=== PATIENT | male | born 1945 | race Caucasian/White ===

== ENCOUNTER 2017-08-19 08:39 | Day surgery (SDC) | payer MEDICARE, OTHER ==
[~2017-08-19 08:39] MED LIST: Acetaminophen/HYDROcodone 325-5 MG Tab PO PRN; Bupivacaine 25%/EPINEPHrine/PF 30 ML ONE; Lactated Ringers 1,000 ML IV SCH; ceFAZolin 2 GM in Premix Bag 1 BAG IV ONE
[2017-08-19] MEDS ORDERED: fentaNYL 100 MCG/2 ML SDV IVPUSH PRN (08:43)
[2017-08-19] MEDS ORDERED: Ondansetron 4 MG/2 ML SDV ONE (08:44)
[2017-08-19] MEDS ORDERED: fentaNYL 100 MCG/2 ML SDV ONE (08:44)
[2017-08-19] MEDS ORDERED: Midazolam 1 MG/ML 2 ML SDV ONE (08:44)
[2017-08-19] MEDS ORDERED: Propofol 200 MG/20 ML SDV ONE (08:44)
[2017-08-19] MEDS ORDERED: Lidocaine 2% 5 ML SDV ONE (08:44)
[2017-08-19] MEDS ORDERED: ceFAZolin 1 GM Vial ONE (08:45)
[2017-08-19] MEDS ORDERED: Sodium Chloride 0.9% 20 ML ONE (08:45)
[2017-08-19] MEDS ORDERED: Bupivacaine 0.25%/EPINEPHrine 1:200,000 10 ML SDV INJECT ONE (09:00)
--- NOTE | 2017-08-19 09:42 | PCM.PREANE ---
Preanesthetic Assessment - Anesthesia/Transfusion/Family Hx Anesthesia History: Prior Anesthesia Without Reaction Other Type of Anesthesia Reaction Comment: "my mother is allergic to novacaine" Family History of Anesthesia Reaction: No Transfusion History: No Prior Transfusion(s) Intubation History: Unknown - Review of Systems General: No Symptoms Pulmonary: No Symptoms Cardiovascular: No Symptoms Gastrointestinal: No Symptoms Neurological: No Symptoms Other: Reports: None - Physical Assessment NPO Status Date: 08/18/17 NPO Status Time: 22:00 O2 Sat by Pulse Oximetry: 94 Respiratory Rate: 16 Vital Signs: Last Vital Signs Temp 36.8 C 08/19/17 09:11 Pulse 63 08/19/17 09:11 Resp 16 08/19/17 09:11 BP 125/63 08/19/17 09:11 Pulse Ox 94 L 08/19/17 09:11 Height: 1.73 m Weight: 90.718 kg ASA Class: 3 Mental Status: Alert & Oriented x3 Airway Class: Mallampati = 2 Dentition: Reports: Normal Dentition Thyro-Mental Finger Breadths: 2 Mouth Opening Finger Breadths: 3 ROM/Head Extension: Limited/Partial Lungs: Clear to Auscultation, Normal Respiratory Effort Cardiovascular: Regular Rate, Regular Rhythm - Allergies Allergies/Adverse Reactions: Allergies Allergy/AdvReac Type Severity Reaction Status Date / Time Sulfa (Sulfonamide Allergy Swelling Verified 08/17/17 10:36 Antibiotics) - Blood Blood Available: No - Anesthesia Plan Beta Rivas: Metoprolol Med Last Dose Date: 08/18/17 Med Last Dose Time: 21:30 - Acknowledgements Anesthesia Type Planned: General Anesthesia Pt an Appropriate Candidate for the Planned Anesthesia: Yes Alternatives and Risks of Anesthesia Discussed w Pt/Guardian: Yes Pt/Guardian Understands and Agrees with Anesthesia Plan: Yes PreAnesthesia Questionnaire HEENT History: Reports: Other (See Below) Other HEENT History: wears glasses, has radha hearing aids Cardiovascular History: Reports: Afib, High Cholesterol, Hypertension Respiratory History: Reports: Asthma, Sleep Apnea Other Respiratory History: uses CPAP Gastrointestinal History: Reports: GERD, Hepatitis, Other (See Below) Other Gastrointestinal History: hx hepatitis in grade school Genitourinary History: Reports: BPH, Renal Calculus Musculoskeletal History: Reports: Osteoarthritis Endocrine/Metabolic History: Reports: Obesity/BMI 30+, Other (See Below) Other Endocrine/Metabolic History: "borderline diabetic" Oncologic (Cancer) History: Reports: Basal Cell Carcinoma Dermatologic History: Reports: Psoriasis - Past Surgical History Head Surgeries/Procedures: Reports: None Other HEENT Surgeries/Procedures: "lump removed from tongue" GI Surgical History: Reports: Hernia, Inguinal (bilateral) Neurological Surgical History: Reports: C-Spine (ACDF) Other Neurological Surgeries/Procedures: hx neck surgery Dermatological Surgical History: Reports: Skin Biopsy - SUBSTANCE USE Smoking Status *Q: Former Smoker (quit ') Days Per Week of Alcohol Use: 7 Number of Drinks Per Day: 2 Total Drinks Per Week: 14 Recreational Drug Use History: No - HOME MEDS Home Medications: Home Meds Apixaban [Eliquis] 5 mg PO BID 08/17/17 [History] Cetirizine HCl/Pseudoephedrine [Cetirizine-Pse ER 5-120 mg Tab] 1 tab PO ASDIRECTED 08/17/17 [History] Fluticasone/Salmeterol [Advair 250-50 Diskus] 1 inhalation INH BID 08/17/17 [ History] Glucosamine/D3/Boswellia Caitlin [Osteo Bi-Flex Caplet] 1 tab PO BID 08/17/17 [ History] Glucosamine/D3/Boswellia Caitlin [Osteo Bi-Flex Tablet] 1 tab PO BID 08/17/17 [ History] Lisinopril 10 mg PO DAILY 08/17/17 [History] Metoprolol Succinate [Toprol XL] 25 mg PO DAILY 08/17/17 [History] [place]-3S/DHA/Epa/Fish Oil [Fish Oil Dr 1,000 mg Softgel] 1 tab PO DAILY [History] Pantoprazole Sodium 40 g PO DAILY 08/17/17 [History] Simvastatin [Zocor] 20 mg PO DAILY 08/17/17 [History] Tamsulosin HCl 0.4 mg PO BEDTIME 08/17/17 [History] - CURRENT (IN HOUSE) MEDS Current Meds: Current Medications Hydrocodone Bitart/Acetaminophen ([place] 325-5 Mg) 1 tab PO Q4H PRN PRN Reason: Pain Fentanyl (Sublimaze) 50 mcg IVPUSH Q5M PRN PRN Reason: Pain (severe 7-10) Stop: 08/20/17 08:43 Lactated Ringer's (Ringers, Lactated) 1,000 mls @ 125 mls/hr IV ASDIRECTED ALYSSA Last Admin: 08/19/17 09:13 Dose: 125 mls/hr Discontinued Medications Bupivacaine HCl/Epinephrine Bitart (Marcaine 0.25%/Epinephrine 1:200,000) 30 ml INJECT ONETIME ONE Stop: 08/19/17 09:01 Cefazolin Sodium (Ancef) Confirm Administered Dose 2 gm .ROUTE .STK-MED ONE Stop: 08/19/17 08:46 Fentanyl (Sublimaze) Confirm Administered Dose 200 mcg .ROUTE .STK-MED ONE Stop: 08/19/17 08:45 Cefazolin Sodium/Dextrose 2 gm (/ Premix) 50 mls @ 100 mls/hr IV ONETIME ONE Stop: 08/18/17 17:46 Bupivacaine HCl/Epinephrine Bitart (Sensorc Mpf 0.25%-Epi 1:191038) Confirm Administered Dose 30 mls @ as directed .ROUTE .STK-MED ONE Stop: 08/19/17 07:23 Sodium Chloride (Normal Saline) Confirm Administered Dose 20 mls @ as directed .ROUTE .STK-MED ONE Stop: 08/19/17 08:46 Lidocaine (Xylocaine-Mpf 2%) Confirm Administered Dose 5 ml .ROUTE .STK-MED ONE Stop: 08/19/17 08:45 Midazolam HCl (Versed 1 Mg/Ml) Confirm Administered Dose 2 mg .ROUTE .STK-MED ONE Stop: 08/19/17 08:45 Ondansetron HCl (Zofran) Confirm Administered Dose 4 mg .ROUTE .STK-MED ONE Stop: 08/19/17 08:45 Propofol (Diprivan 20 Ml) Confirm Administered Dose 200 mg .ROUTE .STK-MED ONE Stop: 08/19/17 08:45
[2017-08-19] MEDS ORDERED: ePHEDrine 50 MG/ML SDV ONE (10:39)
[2017-08-19] MEDS ORDERED: Vasopressin 20 Units/1 ML MDV ONE (10:43)
--- NOTE | 2017-08-20 15:33 | PCM.OPNOTE ---
- General Post-Op/Procedure Note Date of Surgery/Procedure: 08/19/17 Operative Procedure(s): excision of right neck lentigo maligna 3.5cm2 with primary complex closure. excision of left denominational lesion 1cm with primary simple repair Pre Op Diagnosis: right neck lentigo maligna and left denominational lesion Post-Op Diagnosis: Same Anesthesia Technique: General LMA, Local Primary Surgeon: Lucille Ge Credit Authorizer: Elizabeth Crawford Role of Credit Authorizer: retraction, closure Pathology: permanent for both lesions marking at 12 Complications: None Condition: Good
--- NOTE | 2017-08-20 21:00 | OR ---
SURGEON: REINIER FINNEGAN MD DATE OF PROCEDURE: 08/19/2017 PREOPERATIVE DIAGNOSES: Lentigo maligna of the right neck, 3 cm2 and left buddhist lesion 0.5 cm. POSTOPERATIVE DIAGNOSES: Lentigo maligna of the right neck, 3 cm2 and left buddhist lesion 0.5 cm. PROCEDURE: 1. Excision of right neck lentigo maligna 3.5 cm with primary complex closure of the same length. 2. Excision of left buddhist lesion 1 cm with primary simple repair. TOWER HOIST OPERATOR: GUADALUPE Mcclain. INDICATIONS: Mr. Rosales is a 72-year-old gentleman seen today in evaluation for a lentigo maligna of the right neck. Excision is recommended with 0.5 cm margins. In addition, he has a left buddhist lesion that has been there and growing and causing him discomfort. Risks and benefits of excision were discussed with him and he was in agreement to proceed. Risks were including, but not limited to, bleeding, infection, damage to underlying or overlying structures, possible need for future interventions, possible scarring. PROCEDURE IN DETAIL: After informed consent was obtained and placed on the chart, the patient was brought to the operating theater and laid in supine position. After adequate local MAC anesthesia and local general LMA anesthesia was obtained, the area was prepped and draped and a time-out was completed to confirm side and site. Attention was paid to marking of the right neck lentigo maligna of the pigmented area +0.5 cm for margin. This was excised in a circular fashion and sent for pathology with marking stitch at 12 o'clock. Once adequately excised, attention was then paid to meticulous hemostasis and primary complex closure using deep 3- 0 Monocryl stitches for the fascial area to take tension off the skin and deep dermal 3-0 Monocryl stitches as well as a 4-0 Prolene stitch in a horizontal mattress fashion. Once adequately closed, the wound was dressed with an ABD and tape. Attention was then paid to the left buddhist lesion and excision was undertaken with a 1 cm ellipse and the lesion was sent for pathology. It was closed using deep Monocryl stitch in a running subcuticular. Once adequately closed, the wound was dressed with gauze dressing and tape. The patient tolerated this well. All counts and needles were correct at the end of the case. FOLLOWUP INSTRUCTIONS: The patient will see us in clinic in one week or sooner if any problems, questions, or concerns. We will contact him with pathology if it comes back any sooner. Wound care instructions were given and he was given a prescription for pain control as needed. JOHNATHON / DG /[id number]
== END 2017-08-19 13:10 | disposition home or self-care (01) ==
LOC: MW.SDS 08:39
PROVIDERS: ATTEND Plastic Surgery
DX: C43.4 Malignant melanoma of scalp and neck (principal); I48.91 Unspecified atrial fibrillation; E78.00 Pure hypercholesterolemia, unspecified; I10 Essential (primary) hypertension; J45.909 Unspecified asthma, uncomplicated; G47.30 Sleep apnea, unspecified; K21.9 Gastro-esophageal reflux disease without esophagitis; N40.0 Benign prostatic hyperplasia without lower urinary tract symptoms; E66.9 Obesity, unspecified; Z98.1 Arthrodesis status; Z88.0 Allergy status to penicillin; Z87.442 Personal history of urinary calculi; Z68.30 Body mass index [BMI] 30.0-30.9, adult; Z87.891 Personal history of nicotine dependence; Z79.899 Other long term (current) drug therapy
CPT/HCPCS: 11624; 11641; 13132; J0690; J2250; J2405; J3010; J7120; 00300; 88305; J2704

== ENCOUNTER 2017-11-25 08:20 | Day surgery (SDC) | payer MEDICARE, OTHER ==
[~2017-11-25 08:20] MED LIST changes: -Acetaminophen/HYDROcodone 325-5 MG Tab PO PRN; +Bupivacaine 0.25%/EPINEPHrine 1:200,000 10 ML SDV INJECT ONE
[2017-11-25] MEDS ORDERED: Midazolam 1 MG/ML 2 ML SDV ONE (10:07)
[2017-11-25] MEDS ORDERED: Ondansetron 4 MG/2 ML SDV ONE (10:07)
[2017-11-25] MEDS ORDERED: Lidocaine 2% 5 ML SDV ONE (10:07)
[2017-11-25] MEDS ORDERED: fentaNYL 100 MCG/2 ML SDV ONE ×2 (10:07→11:50)
[2017-11-25] MEDS ORDERED: Propofol 200 MG/20 ML SDV ONE (10:07)
--- NOTE | 2017-11-25 10:11 | PCM.PREANE ---
Preanesthetic Assessment - Procedure Proposed Procedure: Excision of melanoma lesion; facial/restoration area - Anesthesia/Transfusion/Family Hx Anesthesia History: Prior Anesthesia Without Reaction Other Type of Anesthesia Reaction Comment: "my mother is allergic to novacaine" Transfusion History: No Prior Transfusion(s) Intubation History: Unknown Additional History: Radiology sentinel node prep - Review of Systems General: No Symptoms Pulmonary: Other (sleep apnea - uses CPAP; former smoker) Cardiovascular: Other (A fib - treated) Gastrointestinal: Other (GERD) Neurological: Other (back /neck problem hx) - Physical Assessment NPO Status Date: 11/24/17 NPO Status Time: 23:00 O2 Sat by Pulse Oximetry: 95 Respiratory Rate: 16 Vital Signs: Last Vital Signs Temp 97.7 F 11/25/17 08:30 Pulse 77 11/25/17 08:30 Resp 16 11/25/17 08:30 BP 140/70 11/25/17 08:30 Pulse Ox 95 11/25/17 08:30 Height: 5 ft 8 in Weight: 200 lb ASA Class: 3 Mental Status: Alert & Oriented x3 Airway Class: Mallampati = 2 Dentition: Reports: Missing Tooth/Teeth (retrognathic) Thyro-Mental Finger Breadths: 3 Mouth Opening Finger Breadths: 3 ROM/Head Extension: Limited/Partial Lungs: Clear to Auscultation, Normal Respiratory Effort Cardiovascular: Regular Rate, Regular Rhythm, No Murmurs - Allergies Allergies/Adverse Reactions: Allergies Allergy/AdvReac Type Severity Reaction Status Date / Time Sulfa (Sulfonamide Allergy Swelling Verified 11/20/17 07:29 Antibiotics) - Blood Blood Available: No Product(s) Available: None - Acknowledgements Anesthesia Type Planned: General Anesthesia, MAC (vs general; discuss with surgeon) Pt an Appropriate Candidate for the Planned Anesthesia: Yes Alternatives and Risks of Anesthesia Discussed w Pt/Guardian: Yes Pt/Guardian Understands and Agrees with Anesthesia Plan: Yes PreAnesthesia Questionnaire HEENT History: Reports: Other (See Below) Other HEENT History: wears glasses, has radha hearing aids Cardiovascular History: Reports: Afib, High Cholesterol, Hypertension Respiratory History: Reports: Asthma, Sleep Apnea Other Respiratory History: uses CPAP Gastrointestinal History: Reports: GERD, Hepatitis, Other (See Below) Other Gastrointestinal History: hx hepatitis in grade school Genitourinary History: Reports: BPH, Renal Calculus Musculoskeletal History: Reports: Osteoarthritis Neurological History: Reports: None Psychiatric History: Reports: None Endocrine/Metabolic History: Reports: None Hematologic History: Reports: None Immunologic History: Reports: None Oncologic (Cancer) History: Reports: Basal Cell Carcinoma, Malignant Melanoma Dermatologic History: Reports: None - Past Surgical History Head Surgeries/Procedures: Reports: None HEENT Surgical History: Reports: Cataract Surgery Other HEENT Surgeries/Procedures: "lump removed from tongue" GI Surgical History: Reports: Hernia, Inguinal Neurological Surgical History: Reports: C-Spine Other Neurological Surgeries/Procedures: hx back surgery Dermatological Surgical History: Reports: Skin Biopsy - SUBSTANCE USE Smoking Status *Q: Former Smoker Days Per Week of Alcohol Use: 7 Number of Drinks Per Day: 2 Total Drinks Per Week: 14 Recreational Drug Use History: No - HOME MEDS Home Medications: Home Meds Apixaban [Eliquis] 5 mg PO BID 08/17/17 [History] Cetirizine HCl/Pseudoephedrine [Cetirizine-Pse ER 5-120 mg Tab] 1 tab PO BID [History] Fluticasone/Salmeterol [Advair 250-50 Diskus] 1 inhalation INH BID 08/17/17 [ History] Glucosamine/D3/Boswellia Caitlin [Osteo Bi-Flex Tablet] 1 tab PO BID 08/17/17 [ History] Lisinopril 10 mg PO DAILY 08/17/17 [History] Metoprolol Succinate [Toprol XL] 25 mg PO DAILY 08/17/17 [History] [place]-3S/DHA/Epa/Fish Oil [Fish Oil Dr 1,000 mg Softgel] 1 tab PO DAILY [History] Simvastatin [Zocor] 20 mg PO DAILY 08/17/17 [History] Tamsulosin HCl 0.4 mg PO BEDTIME 08/17/17 [History] Amiodarone [Cordarone] 200 mg PO BEDTIME 11/20/17 [History] Hydrochlorothiazide 25 mg PO DAILY 11/20/17 [History] Lutein/Minerals/Vit A,C & E [Ocuvite] 1 tab PO DAILY 11/20/17 [History] Pantoprazole Sodium [Protonix] 40 mg PO DAILY 11/20/17 [History] Prednisone [IJD: predniSONE] 20 mg PO ASDIRECTED 11/20/17 [History] Triamcinolone Acetonide [Nasacort AQ [place]] 1 spray NASBOTH ASDIRECTED 11/20/17 [History] - CURRENT (IN HOUSE) MEDS Current Meds: Current Medications Lactated Ringer's (Ringers, Lactated) 1,000 mls @ 125 mls/hr IV ASDIRECTED ALYSSA Last Admin: 11/25/17 09:57 Dose: 125 mls/hr Discontinued Medications Bupivacaine HCl/Epinephrine Bitart (Marcaine 0.25%/Epinephrine 1:200,000) 10 ml INJECT ONETIME ONE Stop: 11/25/17 08:01 Cefazolin Sodium/Dextrose 2 gm (/ Premix) 50 mls @ 100 mls/hr IV ONETIME ONE Stop: 11/25/17 08:29 Bupivacaine HCl/Epinephrine Bitart (Sensorc Mpf 0.25%-Epi 1:[id number]) Confirm Administered Dose 30 mls @ as directed .ROUTE .STK-MED ONE Stop: 11/25/17 07:29
[2017-11-25] MEDS ORDERED: Methylene Blue 50 MG/10 ML Ampule ONE (10:25)
[2017-11-25] MEDS ORDERED: Glycopyrrolate 0.2 MG/ML SDV ONE (11:31)
[2017-11-25] MEDS ORDERED: ePHEDrine 50 MG/ML SDV ONE (11:51)
--- NOTE | 2017-11-25 13:47 | NM ---
EXAMINATION: Lymphoscintigraphy of the left face HISTORY: Melanoma COMPARISON: PET scan dated 11/02/2017 TECHNIQUE: The region of previous biopsy was located. The area was wrapped with ChloraPrep. A total o f 6 injections of 0.5 mCi of technetium 99 M labeled sulfur colloid was injected intradermally around the biopsy site. FINDINGS/IMPRESSION: There is a small focus of uptake noted immediately inferior to the biopsy site. Additional areas of uptake are noted along the cervical chain on the left more inferiorly.
[2017-11-25] MEDS ORDERED: traMADol 50 MG Tab PO SCH (14:00)
--- NOTE | 2017-11-25 16:16 | PCM.OPNOTE ---
- General Post-Op/Procedure Note Date of Surgery/Procedure: 11/25/17 Operative Procedure(s): reexcision of left lutheran malignant melanoma with 2cm margins - 5via4kn excision total. attempted sentinel lymph node biopsy - incomplete. Pre Op Diagnosis: left lutheran malignant melanoma - previous excision with negative margins, need for larger margins. Post-Op Diagnosis: Same Anesthesia Technique: General LMA, Local Primary Surgeon: Lucille Ge Partnership Marketing Manager: Elizabeth Crawford Role of Partnership Marketing Manager: retraction, prepping draping and closure assistance. Condition: Good Free Text/Narrative:: Intake & Output 11/25/17 11/25/17 11/25/17 07:59 15:59 23:59 Intake Total 1250 Balance 1250
--- NOTE | 2017-11-27 22:25 | OR ---
SURGEON: REINIER FINNEGAN MD DATE OF PROCEDURE: 11/25/2017 PREOPERATIVE DIAGNOSIS: Left presybeterian melanoma, previous excision with negative margins, need for 2cm margins. POSTOPERATIVE DIAGNOSIS: Left presybeterian melanoma, previous excision with negative margins, need for 2cm margins. PROCEDURE: 1. Re-excision of left presybeterian malignant melanoma with 2 cm margins for a total of 6 x 4 cm excision with significant undermining for a complex 6 cm repair of the left presybeterian. 2. Attempted sentinel lymph node biopsy, incomplete. REVERBERATORY SKIMMER: GUADALUPE Huang. ANESTHESIA: General LMA with local. REASON REVERBERATORY SKIMMER WAS NECESSARY: Prepping, draping, closure, and retraction assistance. INDICATIONS: Mr. Rosales is a 72-year-old gentleman, who has had somewhat of a complicated course. He was recently referred to us for lentigo maligna on the right neck area. This was excised and did not reveal any signs of invasive melanoma. However, he did have a small lesion on the left presybeterian that had just shown up. We opted for excision during that procedure as well for pathology. 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 The depth was 2.54 mm, which is significant. We discussed the risks and benefits of excision with sentinel lymph node biopsy and his son has had a similar experience with amelanotic melanoma-type lesion. On PET scan, his son did have some metastasis and so they requested a PET scan. We did get this accomplished for him after several issues with weather delays. PET scan was read as negative without any signs of metastatic involvement. We had a margo discussion on sentinel lymph node biopsy and the value at this time. He would like to proceed if the sentinel lymph node is superficial and does not result in violation of other structures. Given the head and neck drainage patterns, sentinel nodes can be difficult. We discussed that if it is superficial and easily located, we will most happily take it, but should it be deep and risk injury to other structures, we will not undertake this. This is his explicit desired course. He understands the risks and benefits and would like to proceed. Risks were including, but not limited to, bleeding, infection, damage to underlying or overlying structures, possible need for future interventions, and possible scarring. PROCEDURE IN DETAIL: After informed consent was obtained and placed on the chart, the patient was brought to the operating theater in supine position. He was previously in radiology and markers noted the sentinel node to be within the lower parotid area. After the patient was prepped and draped and a time-out had been completed to confirm side and site, attention was first paid to the injection of local anesthesia and attempted location of the sentinel node. The node was located in the inferior area of the parotid gland and dissection was undertaken through the skin and subcutaneous tissues. Unfortunately, after significant dissection, it was appreciated to be even deeper likely in the deeper lobe of the parotid and thus additional dissection at the risk of damage to other structures was concluded. [place] node was not obtained. This wound was closed in a simple 2 cm fashion with deep Monocryl and a running subcuticular. This was dressed with Steri-Strips. Attention was then paid to re-excision of the left presybeterian scar for the previous malignant melanoma. An additional 2 cm of margin was taken on each side for a total length of 6 cm x 4 cm total excision. Once excised, it was sent for pathology with a marking stitches at 12 o'clock for permanent sections. The anterior skin flap and posterior skin flaps were then significantly undermined in the subcutaneous plane and then deep 4-0 Monocryl stitches and 5-0 nylon stitches for the skin were used to close this after meticulous hemostasis and irrigation. The patient tolerated this well. All counts and needles were correct at the end of the case. The wounds were dressed with Steri-Strips of the neck and bacitracin for the presybeterian. FOLLOWUP INSTRUCTIONS: The patient will see us in 1 week, sooner if any problems, questions, or concerns and was given a prescription for pain control if needed. JOHNATHON / DG /[id number] BACILIO
== END 2017-11-25 14:45 | disposition home or self-care (01) ==
LOC: MW.SDS 08:20
PROVIDERS: ATTEND Plastic Surgery
DX: C43.39 Malignant melanoma of other parts of face (principal); L90.5 Scar conditions and fibrosis of skin; Z88.2 Allergy status to sulfonamides; Z79.01 Long term (current) use of anticoagulants; Z79.899 Other long term (current) drug therapy
CPT/HCPCS: 11646; 13132; 38500; 78195; 88307; A9270; A9541; J0690; J2250; J2405; J3010; J7120; 00300; J2704